=== PATIENT | female | born 1980 | race Caucasian/White ===

== ENCOUNTER 2020-11-10 20:41 | Emergency (ER) | payer OTHER ==
[~2020-11-10] VITALS: Ht 162.6 cm; Wt 79.5 kg
[~2020-11-10 20:41] MED LIST: AMBIEN 10MG10 MG PO; AMOXICILLIN 8751 TAB PO; DESYREL 100MG100 MG PO; NECON 1/35 35 M1 TAB PO; NORCO 325 MG-7.1 TAB PO; NORINYL PO; PERIACTIN 4MG TA4 MG PO; PRIL40 PO; ZOLOFT 25MG25 MG PO; ZOLOFT 50MG50 MG PO; [UNRECOGNIZED DRUG - OTHER]
[2020-11-10 20:54] VITALS: BP 148/92; TEMP 98.2
[2020-11-10] MEDS ORDERED: CRUTCHES MC (22:09)
[2020-11-10 22:47] VITALS: PULSE 95
== END 2020-11-10 22:47 | disposition home or self-care (01) ==
LOC: COL.ER 20:41
DX: S92.022A Displaced fracture of anterior process of left calcaneus, initial encounter for closed fracture (principal); S92.015A Nondisplaced fracture of body of left calcaneus, initial encounter for closed fracture; S92.152A Displaced avulsion fracture (chip fracture) of left talus, initial encounter for closed fracture; S92.252A Displaced fracture of navicular [scaphoid] of left foot, initial encounter for closed fracture; F32.9 Major depressive disorder, single episode, unspecified; K21.9 Gastro-esophageal reflux disease without esophagitis; W19.XXXA Unspecified fall, initial encounter; Y92.009 Unspecified place in unspecified non-institutional (private) residence as the place of occurrence of the external cause

== ENCOUNTER → 2024-04-19 | Outpatient (CLI) | payer OTHER ==
[~2024-04-19] MED LIST changes: +CRUTCHES MC
== END ==
LOC: MC.RAD 12:54
DX: Z12.31 Encounter for screening mammogram for malignant neoplasm of breast (principal)